=== PATIENT | male | born 1990 | race Two or more races ===

== ENCOUNTER 2016-10-28 17:24 | Emergency (ER) | payer SELFPAY | END 2016-10-28 22:40 | disposition T | LOC: EDMED 17:24 | PROC: 2W3CXYZ Immobilization of Right Lower Arm using Other Device (ICD-10-PCS; principal; 2016-10-28) | PROC: 0W3Q7ZZ Control Bleeding in Respiratory Tract, Via Natural or Artificial Opening (ICD-10-PCS; 2016-10-28) | DX: R04.0 Epistaxis (principal); G56.01 Carpal tunnel syndrome, right upper limb ==